=== PATIENT | female | born 1965 | race Caucasian/White ===

== ENCOUNTER 2024-01-03 13:17 | Outpatient (AMB) | payer OTHER, SELFPAY ==
--- NOTE | 2024-01-09 10:50 | ORTHONT_ITS ---
Med/Allergies Allergies & Medications Allergies No Known Allergies Allergy (Verified 10/04/23 15:40) Subjective Visit Visit for: follow up visit and knee Immunization / Flu Flu Vaccine in the Last 12 Months: No Flu Vaccine Exclusion Criteria: No Exclusion Criteria History of Present Illness Chief complaint: LEFT KNEE PAIN Kiarra is a pleasant 58-year-old female with bilateral knee pain. She has bilateral knee pain and the injection has worn out. She reports the pain is starting to hinder her quality of life and happiness. SHe has tried weight loss, multiple injections and physical therapy. 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 Assessment and Plan Problem List (1) Bilateral knee pain: Status: Acute Plan: Patient is a pleasant 58-year-old female with severe left knee osteoarthritis as well as some right knee pain. We have tried significant conservative treatment and the pain is affecting her quality of life and happiness. SHe has failed conservative treatment and we thus discussed total knee replacement as a reasonable option. We will start on the left as this knee is significantly worse. The nature and purpose of the total knee replacement, alternative method(s) of treatment, the material risks involved, and the possibility of complications were fully explained to the patient. The patient does NOT have any of the following contraindications to TKA: - Active infection of the knee joint, OR - Active systemic bacteremia, OR - Active skin infection or open wound at surgical site, OR - Neuropathic arthritis, OR - Severe, rapidly progressive neurological disease, OR - Severe medical condition that makes risks of surgery outweigh the potential benefit. ?The patient was told the most common risks and complications associated with a total knee replacement include, but are not limited to: blood clots in the leg, stiffness, fatal pulmonary embolism, dislocation of the prosthesis, intraoperative and postoperative fractures of the femur or tibia, infection, failure of the prosthesis or grafting materials, complications from anesthesia, reactions to blood transfusions, postoperative leg length inequality, instability of the knee replacement, nerve damage or injury, vascular injury, delayed wound healing, infection, other injury or even . In addition, there are risks associated with anesthesia given during this operation. Also, the patient was told that after undergoing a total knee replacement there may still be persistent pain or disability. The patient was informed that the success of this operation in part depends upon the mechanical devices which are going to be implanted and that these devices can fail or malfunction, and may need to be repaired or replaced and there are no guarantees as to the longevity of this device or its parts and that it or its parts could fail prematurely. The importance of compliance with physical therapy was also discussed with the patient. The patient was also notified that during the course of surgery, there may be a need to use bone graft from donors, and that any bone graft used will be carefully screened for communicable diseases, including AIDS, hepatitis, Chalo-Creutzfeldt, or other diseases, but despite the screening pr ocedures, there is a small chance that they could contract one of these diseases. Finally, the patient was asked to follow completely and fully with all advice and recommended treatments, and that recovery and ultimate outcome are affected by their compliance with recommended treatment. We discussed the risks, benefits and treatment alternatives, and the patient is interested in proceeding with surgery. We will try to set this up as expeditiously as possible. (2) Arthritis of both knees: Status: Acute Office Procedures GNS Level of Care Nursing/Assessment Patient Status: Established Patient Nursing Assessment/Reassesment: Medication Reconciliation, Update PMH in EMR and Vital Signs Coordination of Care: Complex Care and Chronic Disease 1-5, Education Complex Pt/Fam, Consent,records obtained, informed consent, Results/Orders obtained and Staff clarify orders Established Patient Charge Established Patient Point Assignment: 95 Telehealth Telemed Phone/Video with patient at home & Dr,PA,INSURANCE SERVICE REPRESENTATIVE: Yes
== END 2024-01-03 14:16 | disposition home or self-care (01) ==
LOC: HODSRG 13:17
PROVIDERS: PCP Internal Medicine; Referring Provider Internal Medicine; Supervising Provider Orthopaedic Surgery Adult Reconstructive Orthopaedic Surgery; Visit Provider Orthopaedic Surgery Adult Reconstructive Orthopaedic Surgery
DX: M25.561 Pain in right knee (principal); M25.562 Pain in left knee; M17.0 Bilateral primary osteoarthritis of knee
CPT/HCPCS: 99212; G0463

== ENCOUNTER 2024-01-20 10:58 | Outpatient (AMB) | payer OTHER, SELFPAY ==
--- NOTE | 2024-01-17 11:44 | ORTHONT_ITS ---
Vital signs 01/20/24 11:33 Height 1.63 m Height Method Stated Weight 107.303 kg Weight Measurement Method Standing Scale BMI 40.4 BP 122/78 Blood Pressure Source Automatic Cuff Blood Pressure Location Right Upper Arm Position Sitting Respiration 18 Pulse 76 Pulse Source Monitor Temp 96.9 F Temp Source Temporal Artery Scan Pulse Oximetry (%) 94 L Oxygen Delivery Method Room Air Med/Allergies Allergies & Medications Allergies No Known Allergies Allergy (Verified 01/20/24 11:34) Medication Reconciliation atorvastatin 20 mg tablet 20 mg PO QDAY 02/18/23 [History Confirmed 01/20/24] gabapentin 100 mg capsule 100 mg PO QDAY 10/04/23 [History Confirmed 01/20/24] meloxicam 7.5 mg tablet 7.5 mg PO QDAY #45 tabs 10/04/23 [Rx Confirmed 01/20/24] omeprazole 40 mg capsule,delayed release 40 mg PO QDAY 10/04/23 [History Confirmed 01/20/24] Subjective Visit Visit for: follow up visit and knee Immunization / Flu Flu Vaccine in the Last 12 Months: No Flu Vaccine Exclusion Criteria: No Exclusion Criteria History of Present Illness Chief complaint: PRE-OP Date of 1st surgery (if applicable): 01/25/24 Kiarra is a pleasant 58-year-old female with bilateral knee pain. She has bilateral knee pain and the injection has worn out. She reports the pain is starting to hinder her quality of life and happiness. SHe has tried weight loss, multiple injections and physical therapy. 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 Exam Exam Patient is in no acute distress and is cooperative with the examination today. Breathing is nonlabored. In no respiratory distress. Bilateral extremities were evaluated and demonstrates sensation intact to light touch. Palpable pedal pulses are present. No significant edema is present. Bilateral hips were examined. The patient has no pain with log roll of the hips. Internal rotation to 30 degrees and external rotation to 30 degrees is painless. Negative FADIR. The left knee was examined. The left knee is in varus alignment. Range of motion from 0-115 degrees. Knee is stable to varus and valgus as well as AP translation with <5mm. Patient has a negative McMurrays. There is no pain with patellofemoral compression and no crepitus noted. The knee is tender to palpation medially. The right knee was also examined. The right knee is in varus alignment. Range of motion from 0-120 degrees. Knee is stable to varus and valgus as well as AP translation with <5mm. Patient has a negative McMurrays. There is no pain with patellofemoral compression and no crepitus noted. The knee is tender to palpation medially We went over x-ray results. She actually has severe osteoarthritis on the left side with varus deformity. There is complete obliteration of the medial joint space. On the right side she has mild to moderate osteoarthritis Assessment and Plan Problem List (1) Bilateral knee pain: Status: Acute Plan: Patient is a pleasant 58-year-old female with severe left knee osteoarthritis as well as some right knee pain. We have tried significant conservative treatment and the pain is affecting her quality of life and happiness. SHe has failed conservative treatment and we thus discussed total knee replacement as a reasonable option. We will start on the left as this knee is significantly worse. The nature and purpose of the total knee replacement, alternative method(s) of treatment, the material risks involved, and the possibility of complications were fully explained to the patient. The patient does NOT have any of the following contraindications to TKA: - Active infection of the knee joint, OR - Active systemic bacteremia, OR - Active skin infection or open wound at surgical site, OR - Neuropathic arthritis, OR - Severe, rapidly progressive neurological disease, OR - Severe medical condition that makes risks of surgery outweigh the potential benefit. ?The patient was told the most common risks and complications associated with a total knee replacement include, but are not limited to: blood clots in the leg, stiffness, fatal pulmonary embolism, dislocation of the prosthesis, intraoperative and postoperative fractures of the femur or tibia, infection, failure of the prosthesis or grafting materials, complications from anesthesia, reactions to blood transfusions, postoperative leg length inequality, instability of the knee replacement, nerve damage or injury, vascular injury, delayed wound healing, infection, other injury or even . In addition, there are risks associated with anesthesia given during this operation. Also, the patient was told that after undergoing a total knee replacement there may still be persistent pain or disability. The patient was informed that the success of this operation in part depends upon the mechanical devices which are going to be implanted and that these devices can fail or malfunction, and may need to be repaired or replaced and there are no guarantees as to the longevity of this device or its parts and that it or its parts could fail prematurely. The importa nce of compliance with physical therapy was also discussed with the patient. The patient was also notified that during the course of surgery, there may be a need to use bone graft from donors, and that any bone graft used will be carefully screened for communicable diseases, including AIDS, hepatitis, Chalo- Creutzfeldt, or other diseases, but despite the screening procedures, there is a small chance that they could contract one of these diseases. Finally, the patient was asked to follow completely and fully with all advice and recommended treatments, and that recovery and ultimate outcome are affected by their compliance with recommended treatment. We discussed the risks, benefits and treatment alternatives, and the patient is interested in proceeding with surgery. We will try to set this up as expeditiously as possible. (2) Arthritis of both knees: Status: Acute Office Procedures GNS Level of Care Nursing/Assessment Patient Status: Established Patient Nursing Assessment/Reassesment: Medication Reconciliation, Update PMH in EMR and Vital Signs Coordination of Care: Complex Care and Chronic Disease 1-5, Education Complex Pt/Fam, Consent,records obtained, informed consent, 1 Ins Authorization, Results/Orders obtained and Staff clarify orders Established Patient Charge Established Patient Point Assignment: 110 Established Patient Point Charge: EP Level 3 (80-115) Past Medical History Past Medical History Have you ever been diagnosed with any of the following: Respiratory Problems Smoking: No Smoking Exposure: No
[2024-01-20 11:33] VITALS: BP 122/78; PULSE 76; RESP 18; TEMP 36.1; O2SAT 94; BMI 40.4
== END 2024-01-20 11:44 | disposition home or self-care (01) ==
LOC: HODSRG 10:58
PROVIDERS: PCP Internal Medicine; Referring Provider Internal Medicine; Supervising Provider Orthopaedic Surgery Adult Reconstructive Orthopaedic Surgery; Visit Provider Orthopaedic Surgery Adult Reconstructive Orthopaedic Surgery
DX: M25.561 Pain in right knee (principal); M25.562 Pain in left knee; M17.0 Bilateral primary osteoarthritis of knee
CPT/HCPCS: 99213; G0463

== ENCOUNTER → 2024-01-20 | Outpatient (CLI) | payer OTHER, SELFPAY ==
--- NOTE | 2024-01-20 12:00 | XR_ITS ---
Examination: CT left lower extremity, without contrast. 2-D sagittal reconstructions. 2-D coronal reconstructions. 3-D reconstructions. Date and time of exam:January 20, 2024 1236 hours INDICATIONS: Left knee pain years CTDI: vol (mGy):34.68 DLP: (mGycm):1003 Technique: Multiple 1.25 mm axial sections of the left lower extremity without intravenous contrast have been obtained. 2-D sagittal and coronal reconstructions have been obtained. 3-D reconstructions have been obtained. Low dose protocols were performed. One or more of the following dose reduction techniques were used; automated exposure control, adjustment of the mA and/or KV according to patient size, use of iterative reconstruction technique. Findings: Moderate osteopenia 3.5 cm calcified uterine fibroid masses Mild narrowing hip joints No hip fracture or dislocation No avascular necrosis Advanced narrowing medial joint space left knee Moderate osteoarthritis patellofemoral joint No fracture or dislocation IMPRESSION: Advanced narrowing medial joint space left knee Moderate osteoarthritis patellofemoral joint left knee
== END | disposition home or self-care (01) ==
LOC: CCTX 12:07
PROVIDERS: PCP Student in an Organized Health Care Education/Training Program; Referring Provider Orthopaedic Surgery Adult Reconstructive Orthopaedic Surgery; Visit Provider Orthopaedic Surgery Adult Reconstructive Orthopaedic Surgery
DX: M17.12 Unilateral primary osteoarthritis, left knee (principal); M25.862 Other specified joint disorders, left knee
CPT/HCPCS: 73700

== ENCOUNTER 2024-01-25 08:00 | Day surgery (SDC) | payer OTHER, SELFPAY ==
[2024-01-24 07:04] VITALS: BMI 44.9
--- NOTE | 2024-01-24 07:29 | EKG_ITS ---
[facility] Test Date: 2024-01-24 Pat Name: GRACIELA OBANDO Department: Room: - Gender: Female Supervisor Locomotive: RTSJC : 1965 Requested By: Sean Hawkins Order Number: [id number] Reading MD: Sean Hawkins Measurements Intervals [place] Rate: 68 P: -26 VA: 161 QRS: 3 QRSD: 84 T: 31 QT: 363 QTc: 387 Interpretive Statements SINUS RHYTHM No previous ECG available for comparison /store/S0/[id number].pdf
[2024-01-24 08:19] LABS: Basophils % (Auto) 0 % (0-2.5); Eosinophils # (Auto) 0.1 Thou/mm3 (0.0-0.5); Eosinophils % (Auto) 2 % (0-10); Hemoglobin 13.6 g/dL (12.0-16.0); Immature Granulocytes % (Auto) 0 % (0-0); Immature Granulocytes Auto 0.03 Thou/mm3 (0.00-0.00); Lymphocytes # (Auto) 3.3 Thou/mm3 (1.0-4.8); Lymphocytes % (Auto) 36 % (10-50); Mean Corpuscular HGB Conc 32.4 g/dl (31.0-37.0); Mean Corpuscular Hemoglobin 29.4 pg (25.0-35.0); Mean Corpuscular Volume 91 fL (80-100); Monocytes # (Auto) 0.6 Thou/mm3 (0.0-0.8); Monocytes % (Auto) 6 % (0-12); Neutrophils # (Auto) 5.1 Thou/mm3 (1.8-7.7); Neutrophils % (Auto) 56 % (37-80); Nucleated Red Blood Cell % 0 /100 WBC (0); Platelet Count 268 Thou/mm3 (140-440); RDW Standard Deviation 42.7 fL (36.4-46.3); Red Blood Count 4.63 Miln/mm3 (4.00-5.20); White Blood Count 9.1 Thou/mm3 (3.6-11.0)
[2024-01-24 08:30] LABS: INR 0.9 (0.9-1.3); Partial Thromboplastin Time 27.8 Seconds (22.0-36.0); Prothrombin Time 10.3 Seconds (9.0-12.2)
[2024-01-24 08:44] LABS: Alanine Aminotransferase 16 U/L (10-49); Albumin, Serum 4.5 gm/dL (3.4-4.8); Albumin/Globulin Ratio 1.6 (1.2-2.2); Alkaline Phosphatase 121 U/L (46-116); Anion Gap 6 (7-16); Aspartate Amino Transferase 17 U/L (0-34); BUN/Creatinine Ratio 19 Ratio (12-20); Bilirubin,Total 0.5 mg/dL (0.3-1.2); Blood Urea Nitrogen 15 mg/dL (9-23); Calcium 9.7 mg/dL (8.3-10.6); Calcium (Corrected) 9.7 mg/dL (8.5-10.1); Carbon Dioxide 31.1 mMol/L (20.0-31.0); Chloride 102 mMol/L (98-107); Creatinine (Component) 0.8 mg/dL (0.6-1.3); Estimated Creatinine Clearance 84.8 mL/min (>60); Globulin 2.8 gm/dL (2.3-3.5); Glucose 110 mg/dL (74-106); Osmolality,Calculated 279 (275-295); Sodium 139 mMol/L (136-145); Total Protein 7.3 gm/dL (5.7-8.2); eGFR > 60 See Note
[2024-01-25] VITALS (11 sets, daily range): BP systolic 115–143; BP diastolic 52–82; PULSE 68–87; RESP 14–20; TEMP 36.3–36.6; O2SAT 95–99; BMI 44.6
--- NOTE | 2024-01-25 09:25 | CHAP ---
Had a prayer with patient and her before her procedure.
[2024-01-25] MEDS: ACETAMINOPHEN 325 MG TABLET 650 MG PO (10:55)
[2024-01-25] MEDS: MELOXICAM 7.5 MG TABLET PO (10:55)
[2024-01-25] MEDS: PREGABALIN 75 MG CAPSULE PO (10:56)
[2024-01-25] MEDS: RINGERS LACTATED 1000 ML 1,000 ML 20 ML IV (10:56)
--- NOTE | 2024-01-25 14:12 | ESOP_ITS ---
Date of Procedure 01/25/24 Pre Op Diagnosis left knee osteoarthritis Post Op Diagnosis left knee osteoarthritis Procedure left total knee replacement jyothi Findings full thickness cartilage loss and ostoephytes Procedure Description Indication: The patient is a 58 year old who has a long history of left knee pain. X-rays show degenerative arthritis involving the knee. Over the past several years the patient has had increasing pain, progressive limitation in function. He has failed conservative measures including activity modification, physical therapy, injections, anti-inflammatories, and assistive devices. After a lengthy discussion of the risks and benefits, the patient presents now for total knee replacement. The nature and purpose of the total knee replacement, alternative method(s) of treatment, the material risks involved, and the possibility of complications were fully explained to the patient. The patient was told the most common risks and complications associated with a total knee replacement include, but are not limited to blood clots in the leg, fatal pulmonary embolism, dislocation of the prosthesis, intraoperative and postoperative fractures of the femur or tibia, infection, failure of the prosthesis or grafting materials, complications from anesthesia, reactions to blood transfusions, postoperative leg length inequality, instability of the knee replacement, nerve damage or injury, vascular injury, delayed wound healing, infections, other injury or even . In addition, there are risks associated with anesthesia given during this operation, temporary or permanent numbness on the skin lateral to the incision can be a complication unique to total knee surgery, and kneeling can be painful after knee replacement surgery. Also, the patient was told that after undergoing a total knee replacement there may still be pain or disability. We discussed with the patient that we will be using a robot-assisted technology. We discussed that there is a possibility of converting to manual instrumentation. The patient was informed that the success of this operation in part depends upon the mechanical devices which are going to be implanted and that these devices can fail or malfunction, and may need to be repaired or replaced and there are no guarantees as to the longevity of this device or its part and that it or its parts could fail prematurely. Finally, the patient was asked to follow completely and fully with all advice and recommended treatments, and that recovery and ultimate outcome are affected by their compliance with recommended treatment. Surgical technique: Patient was marked and consented in the pre-operative area. The patient was brought to the operating room and placed on the operating table in a supine position. Prior to positioning, a timeout procedure was performed between the surgeon, the anesthesiologist, and the nursing staff where the patient and the operative side were identified and confirmed. After adequate general anesthetic was obtained, the left lower extremity was prepped and draped in the usual sterile fashion. A weight based dose of Cefazolin were administered within 1 hour prior to incision. The robot was preregistered and calirated before the incision. The extremity was exsanguinated with an esmarch badge and tourniquet inflated to 250mmHg. A midline incision was made. A median parapatellar arthrotomy was made. The patella was subluxed laterally. A medial release was performed to expose the medial tibia. His femoral and tibial pins were placed through an intra incisional manner for both cases. Every effort was made to ensure that the distalmost aspect of the pin was hung in the second cortex. The arrays were then tightened several times to ensure that it was fixed for the remainder of the case. Both femoral and tibial checkpoints were then placed. We then went through the registration process of the bone. We then assessed the knee deformity and attempted to correct it. We also used the robot to aid in judging laxity in both extension and flexion. Final based on laxity and alignment we changed the preoperative assessment to obtain proper proper implant positioning and to correct deformity. Attention was then placed to the tibia. We made a tibial cut using the robot ensuring that both the MCL and the patella tendon were protected with retractors. We then went to the femur and made the posterior cut followed by the anterior cut and the anterior chamfer. The bone was then removed and we made a distal femur cut and a posterior chamfer cut. We verified all cuts. A trial reduction was performed with a size 2 femoral component and a size 2 keeled tibial component. The patella was cut and sized to a 31. The patella tracked centrally, and no lateral retinacular release was necessary. The trial implants were removed. The arrays, pins, and checkpoints were all removed. We performed a verification that all pins were removed. The cut bone surfaces were lavaged. A size 2 left femoral component, a size 2 keeled tibial component, and a size [31 patella were impacted into position. The knee was felt to be well balanced in the sagittal and coronal plane. The final [2x10mm cruciate-substituting articular insert was impacted into the tibial tray. The knee was brought out to full extension, flexed up to 120 degrees. It was stable to varus and valgus stress and appropriately balanced in flexion and extension. The wounds were copiously irrigated following deflation of tourniquet. The medial retinaculum was reapproximated with #1 vicryl and quill. The subcutaneous tissues were closed with 0 and 2-0 interrupted Vicryl. The skin was closed with 3-0 Monofilament V loc suture. A sterile dressing was applied. The patient was transferred to a bed and brought to recovery in stable condition. The patient tolerated the procedure well. There were no intraoperative complications. Sponge and needle counts were correct times 2. As the attending surgeon, I attest I was present and performed the entire operation. Grafts/Implants Size 2 CR Femur Size [2] Tibia 10mm poly CS 31mm patella Anesthesia GETA Implants sona Pathology / specimen None Pathology comment: none Estimated Blood Loss 150 Surgeon Carrillo Linares MD Surgical Staff Operation Date: 01/25/24 13:15 Case Staff Anesthesiologist: Sean Hawkins RNhealth care aide: Key Palmer
--- NOTE | 2024-01-25 14:25 | SUR.PHASEI ---
1429 Patient arrived to recovery awake and talking with staff, oxygen therapy initiated 2L via nasal cannula, breathing unlabored, vital signs stable, denies pain, dressing intact to left knee; prineo, abd, webril, carolyn wraps, no bleeding noted, post spinal anesthesia assessment via ice patient has dermatome sensation at L1-groin will continue to monitor, bilateral dorsalis pedis pulses present when palpated, patient has good circulation to left lower extremity skin color normal for patient and warm to touch, lung sounds clear upon auscultation, report received from Ryne WALL and Dr. Hawkins
--- NOTE | 2024-01-25 14:40 | XR_ITS ---
Examination: Left knee 2 views Technique one AP lateral left knee 2 views Exam date and time: January 25, 2024 1449 hours INDICATIONS: Postop knee replacement FINDINGS: Total left knee replacement Satisfactory alignment Moderate osteopenia No fracture IMPRESSION: Total left knee arthroplasty with satisfactory alignment
--- NOTE | 2024-01-25 14:50 | SUR.PHASEII ---
1450 XRAY complete per MD order
--- NOTE | 2024-01-25 15:00 | SUR.PHASEII ---
1500 Patients at bedside with patient
--- NOTE | 2024-01-25 15:55 | SUR.PHASEII ---
155 post spinal anesthesia assessment complete, will notify Amber CHRISTENSEN
--- NOTE | 2024-01-25 16:15 | SUR.PHASEII ---
1615 Patient cleared by physical therapist Amber to proceed with discharge
--- NOTE | 2024-01-25 16:30 | SUR.PHASEII ---
1630 Patient meets discharge criteria from recovery, awake and alert, breathing unlabored, vital signs stable, denies pain, dressing intact; no bleeding noted, patient assisted with dressing into her clothing by this brief writer, patient ate a jell and drinking water; denies nausea, discharge instructions given to patient and patients , signed discharge instructions. Patient given all her belongings prior to discharge, transported via wheelchair and left in a private vehicle.
--- NOTE | 2024-01-28 13:45 | PD.ANESPROG ---
Documentation for date of: 01/28/24 POST ANESTHESIA NOTE: Patient had spinal anesthesia and L adductor block and MAC for L TKA on 01/25/24. I just called her numbers for follow up but no answer. Sean Hawkins MD Anesthesia Progress Note Progress Note Most recent Vital Signs: Last Vital Signs Temp 97.7 F 01/25/24 15:55 Pulse 75 01/25/24 16:10 Resp 18 01/25/24 16:10 BP 143/82 H 01/25/24 16:10 Pulse Ox 98 01/25/24 16:10 O2 Flow Rate 2 01/25/24 15:10
== END 2024-01-25 16:30 | disposition home or self-care (01) ==
PROVIDERS: Anesthesiology; PCP Student in an Organized Health Care Education/Training Program; Referring Provider Orthopaedic Surgery Adult Reconstructive Orthopaedic Surgery; Visit Provider Orthopaedic Surgery Adult Reconstructive Orthopaedic Surgery
PROC: (CPT 27447; principal; 2024-01-25 13:00)
DX: M17.12 Unilateral primary osteoarthritis, left knee (principal); Z01.810 Encounter for preprocedural cardiovascular examination
CPT/HCPCS: 27447; 20985; 36415; 73560; 80053; 85025; 85610; 85730; 93005; 97162; A4217; C1713; C1776; J0171; J0690; J1100; J1200; J1885; J2250; J2704; J2795; J3010; J3490; J7030; J7120; A4648; A4649; A9270

== ENCOUNTER 2024-02-07 10:26 | Outpatient (AMB) | payer OTHER, SELFPAY ==
--- NOTE | 2024-02-07 10:55 | PD.ORTHCLVIS ---
Vital signs 02/07/24 10:57 Height 1.55 m Height Method Stated Weight 105.8 kg Weight Measurement Method Standing Scale BMI 44.0 BP 97/61 Blood Pressure Source Automatic Cuff Blood Pressure Location Right Upper Arm Position Sitting Respiration 18 Pulse 81 Pulse Source Monitor Temp 97.9 F Temp Source Temporal Artery Scan Pulse Oximetry (%) 94 L Oxygen Delivery Method Room Air Med/Allergies Allergies & Medications Allergies No Known Allergies Allergy (Verified 02/07/24 10:58) Medication Reconciliation atorvastatin 20 mg tablet 20 mg PO QDAY 02/18/23 [History Confirmed 02/07/24] gabapentin 100 mg capsule 100 mg PO TID 10/04/23 [History Confirmed 02/07/24] cholecalciferol (vitamin D3) 25 mcg (1,000 unit) tablet (Vitamin D3) 25 mcg PO QDAY 01/24/24 [History Confirmed 02/07/24] fexofenadine 180 mg tablet 180 mg PO QDAY 01/24/24 [History Confirmed 02/07/24] omega 1-fyt-med-fish oil 60 mg-90 mg-500 mg capsule (Fish Oil) 1 cap PO QDAY 01/24/24 [History Confirmed 02/07/24] omeprazole 40 mg capsule,delayed release 40 mg PO QDAY 01/24/24 [History Confirmed 02/07/24] acetaminophen 500 mg tablet (Acetaminophen Extra Strength) 1,000 mg (2 x 500 mg) PO Q6H PRN pain #90 tabs 01/25/24 [Rx Confirmed 02/07/24] aspirin 81 mg tablet,delayed release 81 mg PO BID #60 tabs 01/25/24 [Rx Confirmed 02/07/24] doxycycline hyclate 100 mg tablet 100 mg PO BID #14 tabs 01/25/24 [Rx Confirmed 02/07/24] meloxicam 7.5 mg tablet 7.5 mg PO QDAY #30 tabs 01/25/24 [Rx Confirmed 02/07/24] sennosides 8.6 mg-docusate sodium 50 mg tablet (Senna-S) 1 tab-cap PO QDAY #30 tabs 01/25/24 [Rx Confirmed 02/07/24] cyclobenzaprine 5 mg tablet 5 mg PO TID PRN muscle spasm #60 tabs 02/07/24 [Rx] oxycodone 5 mg tablet 5 mg PO Q6H PRN pain #28 tabs 02/07/24 [Rx] Exam Exam Patient is in no acute distress and is cooperative with the examination today. Patient has a normal mood and affect. Breathing is nonlabored. In no respiratory distress. Bilateral extremities were evaluated and demonstrates sensation intact to light touch. Palpable pedal pulses are present. No significant edema is present. Left knee incision is clean dry and intact. Range of motion is 5 to 95 degrees Assessment and Plan Problem List (1) History of total left knee replacement: Status: Acute Plan: Patient is doing well status post left total knee replacement. She should continue with outpatient physical therapy. Will see her in approximately 4 to 5-week Office Procedures GNS Level of Care Nursing/Assessment Patient Status: Established Patient Nursing Assessment/Reassesment: Medication Reconciliation, Update PMH in EMR and Vital Signs Coordination of Care: Complex Care and Chronic Disease 1-5, Education Complex Pt/Fam, Consent,records obtained, informed consent, Results/Orders obtained and Staff clarify orders Special Needs: Language special needs Established Patient Charge Established Patient Point Assignment: 95 Established Patient Point Charge: EP Level 3 (80-115) MA Intake Visit Data Collection New Patient or Established: Established Patient (seen at [facility] within 3 years) Reason for Visit:: 2 WEEK POST OP Seen by Clinical Staff ONLY (RN/MA): No Verbal consent obtained for Telemed visit?: No Information Technology Instructor Required: No PCP or OBGYN visit in last 3 months: Yes Hx Now: No Do You Feel Safe at Home: Yes Authorities Contacted: N/A Questionairres Past Medical History Past Medical History Have you ever been diagnosed with any of the following: Neurological Problems Seizures: No Cardiology Problems Hypercholesterolemia: Yes Congestive Heart Failure: No Respiratory Problems Chronic Obstructive Pulmonary Disease (COPD): No Sleep Apnea: Yes Smoking: No Smoking Exposure: No Stomache/Intestinal Problems Hepatitis: No Obesity: Yes Genital/Urinary Problems Renal Disease: No Reproductive Problems Previous Pregnancies: Yes Musculoskeletal Problems Arthritis: Yes Endocrine Problems Diabetes Mellitus Type 1: No Diabetes Mellitus Type 2: No Other Problems Hospitalization: Yes Shingles: No Blood Transfusions: No Blood Transfusion Reaction: No Anesthesia Reactions: No Chicken Pox: Yes Measles: Yes Mumps: Yes Cancer: No Subjective Visit Visit for: follow up visit, post op #1 and knee Immunization / Flu Flu Vaccine in the Last 12 Months: No Flu Vaccine Exclusion Criteria: No Exclusion Criteria History of Present Illness Chief complaint: 2 WEEK POST OP Date of injury / onset of symptoms: 01/25/24 Kiarra is 2 weeks status post left total knee replacement. She is doing well. She has minimal pain Pain Pain level (0-10): 3 Pain duration: COMES AND GOES Pain location: anterior Pain quality: dull and aching Pain timing: increases with activity Associated signs & symptoms: numbness Ambulatory data Ambulatory device: cane Treatments Improvement with previous injections: No Improvement with PT: No Improvement with NSAIDS: n/a Review of Systems Review of Systems: All systems negative unless otherwise noted in HPI.
[2024-02-07 10:57] VITALS: BP 97/61; PULSE 81; RESP 18; TEMP 36.6; O2SAT 94; BMI 44.0
== END 2024-02-07 11:28 | disposition home or self-care (01) ==
LOC: HODSRG 10:26
PROVIDERS: Supervising Provider Orthopaedic Surgery Adult Reconstructive Orthopaedic Surgery; Visit Provider Orthopaedic Surgery Adult Reconstructive Orthopaedic Surgery
DX: Z96.652 Presence of left artificial knee joint (principal); E78.00 Pure hypercholesterolemia, unspecified
CPT/HCPCS: 99213; G0463

== ENCOUNTER 2024-03-06 08:11 | Outpatient (AMB) | payer BC, SELFPAY ==
--- NOTE | 2024-03-06 08:16 | ORTHONT_ITS ---
Vital signs 03/06/24 08:25 Height 1.55 m Height Method Stated Weight 104.496 kg Weight Measurement Method Standing Scale BMI 43.4 BP 125/85 H Blood Pressure Source Automatic Cuff Blood Pressure Location Right Upper Arm Position Sitting Respiration 18 Pulse 87 Pulse Source Monitor Temp 97.0 F Temp Source Temporal Artery Scan Pulse Oximetry (%) 95 Oxygen Delivery Method Room Air Med/Allergies Allergies & Medications Allergies No Known Allergies Allergy (Verified 03/06/24 08:26) Medication Reconciliation atorvastatin 20 mg tablet 20 mg PO QDAY 02/18/23 [History Confirmed 03/06/24] gabapentin 100 mg capsule 100 mg PO TID 10/04/23 [History Confirmed 03/06/24] cholecalciferol (vitamin D3) 25 mcg (1,000 unit) tablet (Vitamin D3) 25 mcg PO QDAY 01/24/24 [History Confirmed 03/06/24] fexofenadine 180 mg tablet 180 mg PO QDAY 01/24/24 [History Confirmed 03/06/24] omega 6-iwo-fbt-fish oil 60 mg-90 mg-500 mg capsule (Fish Oil) 1 cap PO QDAY 01/24/24 [History Confirmed 03/06/24] omeprazole 40 mg capsule,delayed release 40 mg PO QDAY 01/24/24 [History Confirmed 03/06/24] acetaminophen 500 mg tablet (Acetaminophen Extra Strength) 1,000 mg (2 x 500 mg) PO Q6H PRN pain #90 tabs 01/25/24 [Rx Confirmed 03/06/24] aspirin 81 mg tablet,delayed release 81 mg PO BID #60 tabs 01/25/24 [Rx Confirmed 03/06/24] doxycycline hyclate 100 mg tablet 100 mg PO BID #14 tabs 01/25/24 [Rx Confirmed 03/06/24] meloxicam 7.5 mg tablet 7.5 mg PO QDAY #30 tabs 01/25/24 [Rx Confirmed 03/06/24] sennosides 8.6 mg-docusate sodium 50 mg tablet (Senna-S) 1 tab-cap PO QDAY #30 tabs 01/25/24 [Rx Confirmed 03/06/24] cyclobenzaprine 5 mg tablet 5 mg PO TID PRN muscle spasm #60 tabs 02/07/24 [Rx Confirmed 03/06/24] oxycodone 5 mg tablet 5 mg PO Q6H PRN pain #28 tabs 02/07/24 [Rx Confirmed 03/06/24] Exam Exam Patient is in no acute distress and is cooperative with the examination today. Patient has a normal mood and affect. Breathing is nonlabored. In no respiratory distress. Bilateral extremities were evaluated and demonstrates sensation intact to light touch. Palpable pedal pulses are present. No significant edema is present. Left knee incision is clean dry and intact. Range of motion is 0 to 110 degrees Xrays demonstrate a cementless totalknee replacement in good alignment and position Assessment and Plan Problem List (1) History of total left knee replacement: Status: Acute Plan: Patient is doing well status post left total knee replacement. She should continue with outpatient physical therapy. We Will see her in approximately 8- weeks Office Procedures GNS Level of Care Nursing/Assessment Patient Status: Established Patient Nursing Assessment/Reassesment: Medication Reconciliation, Update PMH in EMR and Vital Signs Coordination of Care: Complex Care and Chronic Disease 1-5, Education Complex Pt/Fam, Consent,records obtained, informed consent, Results/Orders obtained and Staff clarify orders Established Patient Charge Established Patient Point Assignment: 95 Established Patient Point Charge: EP Level 3 (80-115) MA Intake Visit Data Collection New Patient or Established: Established Patient (seen at [facility] within 3 years) Reason for Visit:: F/U TKA Seen by Clinical Staff ONLY (RN/MA): No Verbal consent obtained for Telemed visit?: No Implementation Technician Required: No PCP or OBGYN visit in last 3 months: Yes Hx Now: No Do You Feel Safe at Home: Yes Authorities Contacted: N/A Questionairres Past Medical History Past Medical History Have you ever been diagnosed with any of the following: Neurological Problems Seizures: No Cardiology Problems Hypercholesterolemia: Yes Congestive Heart Failure: No Respiratory Problems Chronic Obstructive Pulmonary Disease (COPD): No Sleep Apnea: Yes Smoking: No Smoking Exposure: No Stomache/Intestinal Problems Hepatitis: No Obesity: Yes Genital/Urinary Problems Renal Disease: No Reproductive Problems Previous Pregnancies: Yes Musculoskeletal Problems Arthritis: Yes Endocrine Problems Diabetes Mellitus Type 1: No Diabetes Mellitus Type 2: No Other Problems Hospitalization: Yes Shingles: No Blood Transfusions: No Blood Transfusion Reaction: No Anesthesia Reactions: No Chicken Pox: Yes Measles: Yes Mumps: Yes Cancer: No Subjective Visit Visit for: follow up visit and knee Immunization / Flu Flu Vaccine in the Last 12 Months: No Flu Vaccine Exclusion Criteria: No Exclusion Criteria History of Present Illness Chief complaint: F/U ON TKA Date of injury / onset of symptoms: 01/25/24 Kiarra is 6 weeks status post left total knee replacement. She is doing well. She has minimal pain Pain Pain level (0-10): 5 Pain duration: COMES AND GOES Pain location: anterior Pain quality: sharp Pain timing: night Associated signs & symptoms: numbness Ambulatory data Ambulatory device: none Treatments Improvement with previous injections: No Improvement with PT: No Improvement with NSAIDS: no Review of Systems Review of Systems: All systems negative unless otherwise noted in HPI.
[2024-03-06 08:25] VITALS: BP 125/85; PULSE 87; RESP 18; TEMP 36.1; O2SAT 95; BMI 43.4
== END 2024-03-06 08:48 | disposition home or self-care (01) ==
LOC: HODSRG 08:11
PROVIDERS: PCP Student in an Organized Health Care Education/Training Program; Referring Provider Student in an Organized Health Care Education/Training Program; Supervising Provider Orthopaedic Surgery Adult Reconstructive Orthopaedic Surgery; Visit Provider Orthopaedic Surgery Adult Reconstructive Orthopaedic Surgery
DX: Z96.652 Presence of left artificial knee joint (principal); E78.00 Pure hypercholesterolemia, unspecified
CPT/HCPCS: 99213; G0463

== ENCOUNTER 2024-05-24 15:17 | Outpatient (AMB) | payer BC, SELFPAY ==
--- NOTE | 2024-05-24 15:26 | ORTHONT_ITS ---
Vital signs 05/24/24 15:27 Height 1.55 m Height Method Stated Weight 107.53 kg Weight Measurement Method Standing Scale BMI 44.7 BP 127/62 Blood Pressure Source Automatic Cuff Blood Pressure Location Right Upper Arm Position Sitting Respiration 17 Pulse 72 Pulse Source Monitor Temp 98.1 F Temp Source Temporal Artery Scan Pulse Oximetry (%) 97 Oxygen Delivery Method Room Air Med/Allergies Allergies & Medications Allergies No Known Allergies Allergy (Verified 05/24/24 15:28) Medication Reconciliation atorvastatin 20 mg tablet 20 mg PO QDAY 02/18/23 [History Confirmed 05/24/24] gabapentin 100 mg capsule 100 mg PO TID 10/04/23 [History Confirmed 05/24/24] cholecalciferol (vitamin D3) 25 mcg (1,000 unit) tablet (Vitamin D3) 25 mcg PO QDAY 01/24/24 [History Confirmed 05/24/24] fexofenadine 180 mg tablet 180 mg PO QDAY 01/24/24 [History Confirmed 05/24/24] omega 2-fzu-dcl-fish oil 60 mg-90 mg-500 mg capsule (Fish Oil) 1 cap PO QDAY 01/24/24 [History Confirmed 05/24/24] omeprazole 40 mg capsule,delayed release 40 mg PO QDAY 01/24/24 [History Confirmed 05/24/24] acetaminophen 500 mg tablet (Acetaminophen Extra Strength) 1,000 mg (2 x 500 mg) PO Q6H PRN pain #90 tabs 01/25/24 [Rx Confirmed 05/24/24] aspirin 81 mg tablet,delayed release 81 mg PO BID #60 tabs 01/25/24 [Rx Confirmed 05/24/24] doxycycline hyclate 100 mg tablet 100 mg PO BID #14 tabs 01/25/24 [Rx Confirmed 05/24/24] meloxicam 7.5 mg tablet 7.5 mg PO QDAY #30 tabs 01/25/24 [Rx Confirmed 05/24/24] sennosides 8.6 mg-docusate sodium 50 mg tablet (Senna-S) 1 tab-cap PO QDAY #30 tabs 01/25/24 [Rx Confirmed 05/24/24] oxycodone 5 mg tablet 5 mg PO Q6H PRN pain #28 tabs 02/07/24 [Rx Confirmed 05/24/24] cyclobenzaprine 5 mg tablet 5 mg PO TID PRN muscle spasm #60 tabs 03/11/24 [Rx Confirmed 05/24/24] Exam Exam Patient is in no acute distress and is cooperative with the examination today. Patient has a normal mood and affect. Breathing is nonlabored. In no respiratory distress. Bilateral extremities were evaluated and demonstrates sensation intact to light touch. Palpable pedal pulses are present. No significant edema is present. Left knee incision is clean dry and intact. Range of motion is 0 to 110 degrees Right knee is tender to palpation medially. Range of motion is 0 to 100 degrees. Xrays demonstrate a cementless totalknee replacement in good alignment and position Assessment and Plan Problem List (1) History of total left knee replacement: Status: Acute Plan: Patient is doing well status post left total knee replacement. She has arthritis of the right knee as well. This Is bothering her and we thus recommended a cortisone injection before her trip. We also discussed that she has bilateral pitting edema and this is a little unusual. She has follow-up with her primary care doctor for this but we discussed that this is unlikely to be related to the knee. Recommend knee cortisone injection as patient would like to proceed with conservative treatment at this time. The risks and benefits of the procedure were reviewed with the patient and patient gave verbal consent to continue with the procedure. Procedure: performed by Dr. Linares Using sterile technique the Right knee was thoroughly prepped with alcohol, and approximately 1 cc of Kenalog 40 mg/mL and 4 cc of 1% lidocaine was injected without resistance into the medial tibial femoral joint space. The patient tolerated the procedure. Office Procedures GNS Level of Care Nursing/Assessment Patient Status: Established Patient Nursing Assessment/Reassesment: Medication Reconciliation, Update PMH in EMR and Vital Signs Coordination of Care: Complex Care and Chronic Disease 1-5, Consent,records obtained, informed consent, Education Simp Pt/Fam, Results/Orders obtained and Staff clarify orders Established Patient Charge Established Patient Point Assignment: 90 Established Patient Point Charge: EP Level 3 (80-115) GNS Level of Care Nursing/Assessment Patient Status: Established Patient Nursing Assessment/Reassesment: Medication Reconciliation, Update PMH in EMR and Vital Signs Coordination of Care: Complex Care and Chronic Disease 1-5, Education Complex Pt/Fam, Consent,records obtained, informed consent, Results/Orders obtained and Staff clarify orders Established Patient Charge Established Patient Point Assignment: 95 Established Patient Point Charge: EP Level 3 (80-115) Surgical Proc/IM SQ injection Major Surgical Procedure: Yes (KNEE INJECTION) Medication Given Medication Given Medication Given: Yes Documented Dose Given: 4 Route: Infiitration Medication Given Medication Given Medication Given: Yes Documented Dose Given: 1 Route: Infiitration Office Meds Xylocaine 10 mg/mL (1 %) injection solution Performing Provider: Carrillo Linares MD Performing Location: [facility] Administered by: Carrillo Linares MD on 05/24/24 15:48 Dose Route Admin Location Dispensed Lot Number Expiration Date [facility] Insecticide Mixer 20 mL Infiltration 20 mL [id number] 08/07/27 22311-886-06 [facility] triamcinolone acetonide 40 mg/mL suspension for injection Performing Provider: Carrillo Linares MD Performing Location: [facility] Administered by: Carrillo Linares MD on 05/24/24 15:48 Dose Route Admin Location Dispensed Lot Number Expiration Date [facility] Insecticide Mixer 40 mg intra-articular KNEE 1 mL [id number] 12/06/25 2040-5013-73 [facility] [place] Intake Visit Data Collection New Patient or Established: Established Patient (seen at [facility] within 3 years) Reason for Visit:: RIGHT KNEE INJECTION Seen by Clinical Staff ONLY (RN/MA): No Residential Door Installer Required: No PCP or OBGYN visit in last 3 months: Yes Hx Now: No Do You Feel Safe at Home: Yes Authorities Contacted: N/A Questionairres Past Medical History Past Medical History Have you ever been diagnosed with any of the following: Neurological Problems Seizures: No Cardiology Problems Hypercholesterolemia: Yes Congestive Heart Failure: No Respiratory Problems Chronic Obstructive Pulmonary Disease (COPD): No Sleep Apnea: Yes Smoking: No Smoking Exposure: No Stomache/Intestinal Problems Hepatitis: No Obesity: Yes Genital/Urinary Problems Renal Disease: No Reproductive Problems Previous Pregnancies: Yes Musculoskeletal Problems Arthritis: Yes Endocrine Problems Diabetes Mellitus Type 1: No Diabetes Mellitus Type 2: No Other Problems Hospitalization: Yes Shingles: No Blood Transfusions: No Blood Transfusion Reaction: No Anesthesia Reactions: No Chicken Pox: Yes Measles: Yes Mumps: Yes Cancer: No Subjective Visit Visit for: follow up visit and knee (RIGHT KNEE ) Immunization / Flu Flu Vaccine in the Last 12 Months: Yes Flu Vaccine Exclusion Criteria: Already Received History of Present Illness Chief complaint: F/U ON TKA Date of injury / onset of symptoms: 01/25/24 Kiarra is 3 months postop from left total knee replacement. She is doing well. She would like an injection of the right knee as it has been bothering her recently Personal History Red flag PMH: none Pain Pain level (0-10): 3 Pain duration: 1 DAY Pain location: anterior and posterior Pain quality: dull and aching Pain timing: increases with activity Associated signs & symptoms: stiffness Ambulatory data Ambulatory device: none Walking distance (minutes): 1 Treatments Number of previous injections: 2 Improvement with previous injections: Yes Number of Physical Therapy sessions: 12 Improvement with PT: Yes Improvement with NSAIDS: n/a Review of Systems Review of Systems: All systems negative unless otherwise noted in HPI.
[2024-05-24 15:27] VITALS: BP 127/62; PULSE 72; RESP 17; TEMP 36.7; O2SAT 97; BMI 44.7
== END 2024-05-24 15:38 | disposition home or self-care (01) ==
LOC: HODSRG 15:17
PROVIDERS: PCP Student in an Organized Health Care Education/Training Program; Referring Provider Student in an Organized Health Care Education/Training Program; Supervising Provider Orthopaedic Surgery Adult Reconstructive Orthopaedic Surgery; Visit Provider Orthopaedic Surgery Adult Reconstructive Orthopaedic Surgery
DX: Z96.652 Presence of left artificial knee joint (principal); M17.11 Unilateral primary osteoarthritis, right knee; E78.00 Pure hypercholesterolemia, unspecified; G47.30 Sleep apnea, unspecified
CPT/HCPCS: 20610; 99213; J3301; J3490; G0463